=== PATIENT | male | born 1940 | race Caucasian/White ===

== ENCOUNTER 2025-02-24 08:21 | Inpatient (IN) ==
[2025-02-24] MEDS: 0.9 % SODIUM CHLORIDE 1,000 ML IV ONE (09:15)
[2025-02-24 09:18] LABS: ALT/SGPT 17 U/L (<40); AST/SGOT 33 U/L (<40); Albumin 3.7 gm/dL (3.2-5.2); Albumin/Globulin Ratio 1.2 (1.0-2.3); Alkaline Phosphatase 75 U/L (39-117); Anion Gap 13.0 (8.0-16.0); Bilirubin,Total 0.5 mg/dL (0.1-1.0); Blood Urea Nitrogen 18 mg/dL (8-23); Calcium 9.1 mg/dL (8.6-10.4); Carbon Dioxide 22 mmol/L (22-30); Chloride 101 mmol/L (96-108); Globulin 3.1 gm/dL (2.2-3.7); Glucose 151 mg/dL (70-105); Potassium 4.2 mmol/L (3.3-5.1); Sodium 136 mmol/L (133-145); Thyroid Stimulating Hormone 1.60 uIU/mL (0.27-5.01)
[2025-02-24 09:27] LABS: Bilirubin,Urine NEGATIVE (Negative); Color,Urine YELLOW; Glucose,Urine (UA) NEGATIVE (Negative); Ketones,Urine NEGATIVE (Negative); Leukocyte Esterase,Urine NEGATIVE /uL (Negative); PH,Urine 5.5 (5.0-9.0); Protein,Urine NEGATIVE (Negative); Specific Gravity,Urine >= 1.030 (1.000-1.035); Urobilinogen,Urine 0.2 mg/dL
[2025-02-24 09:44] LABS: Basophils # (Auto) 0.04 K/mcL (0.00-0.30); Basophils % (Auto) 0.2 % (0.0-2.0); Eosinophils # (Auto) 0 K/mcL (0.00-0.70); Eosinophils % (Auto) 0 % (0.0-7.0); Hematocrit 42.5 % (40.1-51.0); Hemoglobin 14.1 g/dL (13.7-17.5); Lymphocytes # (Auto) 0.61 K/mcL (1.50-4.80); Lymphocytes % (Auto) 3.7 % (15.5-49.0); Mean Corpuscular HGB Conc 33.2 g/dL (31.0-36.0); Monocytes # (Auto) 1.04 K/mcL (0.10-0.90); Monocytes % (Auto) 6.2 % (1.0-12.0); Neutrophils % (Auto) 89.6 % (38.0-78.0); Platelet Count 249 K/mcL (140-440); RBC 4.60 M/mcL (4.63-6.08); WBC 16.7 K/mcL (4.5-11.0)
[2025-02-24] MEDS: 0.9 % SODIUM CHLORIDE 500 ML IV ONE (12:25)
[2025-02-24] MEDS: cefTRIAXone 2 GM in DEXTROSE 5% IN WATER 50 ML IV ONE (12:28)
[2025-02-24] MEDS: AZITHROMYCIN 500 MG in DEXTROSE 5% IN WATER 250 ML IV ONE (13:00)
[2025-02-24 14:43] LABS: C-Reactive Protein 7.72 mg/dL (0.03-0.80)
[2025-02-24] MEDS: LACTATED RINGERS 500 ML IV SCH (17:04)
[2025-02-24] MEDS ORDERED: POLYETHYLENE GLYCOL 3350 17 GM PACKET PO PRN (17:25)
[2025-02-24] MEDS ORDERED: IPRATROPIUM/ALBUTEROL 3 ML AMPUL.NEB NEB PRN (17:25)
[2025-02-24] MEDS ORDERED: ONDANSETRON 4 MG/2 ML VIAL IV PRN (17:25)
[2025-02-24] MEDS: LACTATED RINGERS 1,000 ML IV SCH (19:36)
[2025-02-24] MEDS: DOXYCYCLINE 100 MG in DEXTROSE 5% IN WATER 100 ML IV SCH (21:10)
[2025-02-24] MEDS: SIMVASTATIN 10 MG TABLET PO SCH (21:11)
[2025-02-24] MEDS: OXYBUTYNIN CHLORIDE 5 MG TABLET PO SCH (21:11)
[2025-02-24] MEDS: DONEPEZIL 10 MG TABLET PO SCH (21:11)
[2025-02-24] MEDS: SENNOSIDES 1 TABLET PO SCH (21:12)
[2025-02-24] MEDS: DOCUSATE SODIUM 100 MG CAPSULE PO SCH (21:12)
[2025-02-24] MEDS: 0.9 % SODIUM CHLORIDE 10 ML SYRINGE IV SCH (21:13)
[2025-02-25 06:51] LABS: ALT/SGPT 26 U/L (<40); AST/SGOT 71 U/L (<40); Albumin 3.0 gm/dL (3.2-5.2); Albumin/Globulin Ratio 1.3 (1.0-2.3); Alkaline Phosphatase 61 U/L (39-117); Anion Gap 10.0 (8.0-16.0); Bilirubin,Direct 0.3 mg/dL (<0.3); Bilirubin,Total 0.5 mg/dL (0.1-1.0); Blood Urea Nitrogen 16 mg/dL (8-23); Calcium 8.7 mg/dL (8.6-10.4); Carbon Dioxide 25 mmol/L (22-30); Chloride 100 mmol/L (96-108); Globulin 2.4 gm/dL (2.2-3.7); Glucose 134 mg/dL (70-105); Phosphorous 2.4 mg/dL (2.5-4.5); Potassium 3.5 mmol/L (3.3-5.1); Sodium 135 mmol/L (133-145); Triglycerides 72 mg/dL (<150); Uric Acid 5.4 mg/dL (2.5-8.0)
[2025-02-25 06:53] LABS: C-Reactive Protein 15.20 mg/dL (0.03-0.80)
[2025-02-25 07:11] LABS: Basophils # (Auto) 0.04 K/mcL (0.00-0.30); Basophils % (Auto) 0.3 % (0.0-2.0); Eosinophils # (Auto) 0.02 K/mcL (0.00-0.70); Eosinophils % (Auto) 0.2 % (0.0-7.0); Hematocrit 36.4 % (40.1-51.0); Hemoglobin 12.2 g/dL (13.7-17.5); Lymphocytes # (Auto) 0.73 K/mcL (1.50-4.80); Lymphocytes % (Auto) 6.2 % (15.5-49.0); Mean Corpuscular HGB Conc 33.5 g/dL (31.0-36.0); Monocytes # (Auto) 0.64 K/mcL (0.10-0.90); Monocytes % (Auto) 5.4 % (1.0-12.0); Neutrophils % (Auto) 87.6 % (38.0-78.0); Platelet Count 193 K/mcL (140-440); RBC 3.95 M/mcL (4.63-6.08); WBC 11.8 K/mcL (4.5-11.0)
[2025-02-25] MEDS: cefTRIAXone 2 GM in DEXTROSE 5% IN WATER 50 ML IV SCH (08:05)
[2025-02-25] MEDS: ENOXAPARIN 40 MG/0.4 ML SYRINGE SQ SCH (08:07)
[2025-02-25] MEDS: TAMSULOSIN 0.4 MG CAPSULE PO SCH (08:07)
[2025-02-25] MEDS ORDERED: cefTRIAXone 1 GM VIAL IV SCH (09:00)
[2025-02-25] MEDS: NEUTRA PHOS 1 PACKET PO ONE (13:50)
[2025-02-26] MEDS: LOPERAMIDE 2 MG CAPSULE PO PRN (00:26)
[2025-02-26 06:12] LABS: Basophils # (Auto) 0.03 K/mcL (0.00-0.30); Basophils % (Auto) 0.4 % (0.0-2.0); Eosinophils # (Auto) 0.11 K/mcL (0.00-0.70); Eosinophils % (Auto) 1.4 % (0.0-7.0); Hematocrit 35.7 % (40.1-51.0); Hemoglobin 11.7 g/dL (13.7-17.5); Lymphocytes # (Auto) 0.66 K/mcL (1.50-4.80); Lymphocytes % (Auto) 8.7 % (15.5-49.0); Mean Corpuscular HGB Conc 32.8 g/dL (31.0-36.0); Monocytes # (Auto) 0.69 K/mcL (0.10-0.90); Monocytes % (Auto) 9.1 % (1.0-12.0); Neutrophils % (Auto) 80.1 % (38.0-78.0); Platelet Count 175 K/mcL (140-440); RBC 3.80 M/mcL (4.63-6.08); WBC 7.6 K/mcL (4.5-11.0)
[2025-02-26 06:30] LABS: C-Reactive Protein 11.20 mg/dL (0.03-0.80)
[2025-02-26 06:31] LABS: ALT/SGPT 34 U/L (<40); AST/SGOT 88 U/L (<40); Albumin 2.9 gm/dL (3.2-5.2); Albumin/Globulin Ratio 1.2 (1.0-2.3); Alkaline Phosphatase 61 U/L (39-117); Anion Gap 11.0 (8.0-16.0); Bilirubin,Direct 0.3 mg/dL (<0.3); Bilirubin,Total 0.5 mg/dL (0.1-1.0); Blood Urea Nitrogen 11 mg/dL (8-23); Calcium 8.4 mg/dL (8.6-10.4); Carbon Dioxide 23 mmol/L (22-30); Chloride 100 mmol/L (96-108); Globulin 2.5 gm/dL (2.2-3.7); Glucose 126 mg/dL (70-105); Phosphorous 2.0 mg/dL (2.5-4.5); Potassium 3.6 mmol/L (3.3-5.1); Sodium 134 mmol/L (133-145); Triglycerides 85 mg/dL (<150); Uric Acid 5.1 mg/dL (2.5-8.0)
[2025-02-26] MEDS ORDERED: VANCOMYCIN PER PHARMACY IV SCH (10:30)
[2025-02-26] MEDS: VANCOMYCIN 1,500 MG in 0.9 % SODIUM CHLORIDE 500 ML IV SCH (11:56)
[2025-02-26] MEDS: POTASSIUM PHOSPHATE 40 MEQ in DEXTROSE 5% IN WATER 500 ML IV ONE (16:13)
[2025-02-26] MEDS ORDERED: METHOCARBAMOL 1,000 MG/10 ML VIAL IV PRN (20:04)
[2025-02-26] MEDS: PRAMIPEXOLE 1 MG TABLET PO PRN (20:43)
[2025-02-27 07:07] LABS: Basophils # (Auto) 0.03 K/mcL (0.00-0.30); Basophils % (Auto) 0.5 % (0.0-2.0); Eosinophils # (Auto) 0.22 K/mcL (0.00-0.70); Eosinophils % (Auto) 3.3 % (0.0-7.0); Hematocrit 39.3 % (40.1-51.0); Hemoglobin 13.2 g/dL (13.7-17.5); Lymphocytes # (Auto) 0.83 K/mcL (1.50-4.80); Lymphocytes % (Auto) 12.6 % (15.5-49.0); Mean Corpuscular HGB Conc 33.6 g/dL (31.0-36.0); Monocytes # (Auto) 0.68 K/mcL (0.10-0.90); Monocytes % (Auto) 10.4 % (1.0-12.0); Neutrophils % (Auto) 72.6 % (38.0-78.0); Platelet Count 231 K/mcL (140-440); RBC 4.35 M/mcL (4.63-6.08); WBC 6.6 K/mcL (4.5-11.0)
[2025-02-27 07:13] LABS: ALT/SGPT 45 U/L (<40); AST/SGOT 85 U/L (<40); Albumin 3.4 gm/dL (3.2-5.2); Albumin/Globulin Ratio 1.1 (1.0-2.3); Alkaline Phosphatase 71 U/L (39-117); Anion Gap 13.0 (8.0-16.0); Bilirubin,Direct 0.3 mg/dL (<0.3); Bilirubin,Total 0.5 mg/dL (0.1-1.0); Blood Urea Nitrogen 9 mg/dL (8-23); Calcium 8.5 mg/dL (8.6-10.4); Carbon Dioxide 23 mmol/L (22-30); Chloride 102 mmol/L (96-108); Globulin 3.0 gm/dL (2.2-3.7); Glucose 129 mg/dL (70-105); Phosphorous 2.6 mg/dL (2.5-4.5); Potassium 3.5 mmol/L (3.3-5.1); Sodium 138 mmol/L (133-145); Triglycerides 91 mg/dL (<150); Uric Acid 4.6 mg/dL (2.5-8.0)
[2025-02-27] MEDS: VITAMIN B COMPLEX 1 CAPSULE PO SCH (09:18)
[2025-02-27] MEDS: MELATONIN 3 MG TABLET PO PRN (20:31)
[2025-02-28 06:18] LABS: Basophils # (Auto) 0.04 K/mcL (0.00-0.30); Basophils % (Auto) 0.6 % (0.0-2.0); Eosinophils # (Auto) 0.33 K/mcL (0.00-0.70); Eosinophils % (Auto) 5.0 % (0.0-7.0); Hematocrit 33.7 % (40.1-51.0); Hemoglobin 11.3 g/dL (13.7-17.5); Lymphocytes # (Auto) 0.82 K/mcL (1.50-4.80); Lymphocytes % (Auto) 12.5 % (15.5-49.0); Mean Corpuscular HGB Conc 33.5 g/dL (31.0-36.0); Monocytes # (Auto) 0.71 K/mcL (0.10-0.90); Monocytes % (Auto) 10.9 % (1.0-12.0); Neutrophils % (Auto) 70.1 % (38.0-78.0); Platelet Count 226 K/mcL (140-440); RBC 3.71 M/mcL (4.63-6.08); WBC 6.5 K/mcL (4.5-11.0)
[2025-02-28 06:40] LABS: ALT/SGPT 38 U/L (<40); AST/SGOT 49 U/L (<40); Albumin 2.9 gm/dL (3.2-5.2); Albumin/Globulin Ratio 1.3 (1.0-2.3); Alkaline Phosphatase 55 U/L (39-117); Anion Gap 11.0 (8.0-16.0); Bilirubin,Direct 0.2 mg/dL (<0.3); Bilirubin,Total 0.4 mg/dL (0.1-1.0); Blood Urea Nitrogen 8 mg/dL (8-23); C-Reactive Protein 6.38 mg/dL (0.03-0.80); Calcium 8.0 mg/dL (8.6-10.4); Carbon Dioxide 24 mmol/L (22-30); Chloride 104 mmol/L (96-108); Globulin 2.3 gm/dL (2.2-3.7); Glucose 116 mg/dL (70-105); Phosphorous 2.7 mg/dL (2.5-4.5); Potassium 3.3 mmol/L (3.3-5.1); Sodium 139 mmol/L (133-145); Triglycerides 80 mg/dL (<150); Uric Acid 4.9 mg/dL (2.5-8.0)
[2025-02-28] MEDS: CEFDINIR 300 MG CAPSULE PO SCH (08:59)
[2025-02-28] MEDS: DOXYCYCLINE HYCLATE 100 MG TABLET.ORL PO SCH (08:59)
[2025-02-28] MEDS: POTASSIUM CHLORIDE 20 MEQ TABLET PO ONE (17:38)
[2025-03-05] MEDS: LACTOBACILLUS 1 CAPSULE PO SCH (21:49)
[2025-03-06 06:30] LABS: Basophils # (Auto) 0.05 K/mcL (0.00-0.30); Basophils % (Auto) 0.9 % (0.0-2.0); Eosinophils # (Auto) 0.24 K/mcL (0.00-0.70); Eosinophils % (Auto) 4.2 % (0.0-7.0); Hematocrit 36.2 % (40.1-51.0); Hemoglobin 11.7 g/dL (13.7-17.5); Lymphocytes # (Auto) 0.89 K/mcL (1.50-4.80); Lymphocytes % (Auto) 15.7 % (15.5-49.0); Mean Corpuscular HGB Conc 32.3 g/dL (31.0-36.0); Monocytes # (Auto) 0.59 K/mcL (0.10-0.90); Monocytes % (Auto) 10.4 % (1.0-12.0); Neutrophils % (Auto) 67.4 % (38.0-78.0); Platelet Count 310 K/mcL (140-440); RBC 3.91 M/mcL (4.63-6.08); WBC 5.7 K/mcL (4.5-11.0)
[2025-03-06 06:43] LABS: ALT/SGPT 34 U/L (<40); AST/SGOT 21 U/L (<40); Albumin 3.1 gm/dL (3.2-5.2); Albumin/Globulin Ratio 1.2 (1.0-2.3); Alkaline Phosphatase 57 U/L (39-117); Anion Gap 7.0 (8.0-16.0); Bilirubin,Total 0.4 mg/dL (0.1-1.0); Blood Urea Nitrogen 10 mg/dL (8-23); Calcium 9.0 mg/dL (8.6-10.4); Carbon Dioxide 27 mmol/L (22-30); Chloride 103 mmol/L (96-108); Globulin 2.5 gm/dL (2.2-3.7); Glucose 129 mg/dL (70-105); Potassium 4.2 mmol/L (3.3-5.1); Sodium 137 mmol/L (133-145)
[2025-03-06] MEDS: POTASSIUM CHLORIDE 20 MEQ TABLET PO SCH (08:45)
[2025-03-07] MEDS: metFORMIN 500 MG TAB.XL.24H PO SCH (17:20)
[2025-03-08] MEDS: ACETAMINOPHEN 325 MG TABLET PO PRN (08:42)
== END 2025-03-09 11:57 | DRG 193 ==
LOC: ED 08:21 → MEDSUR 17:08
PROVIDERS: ADMIT Student in an Organized Health Care Education/Training Program; ATTEND Student in an Organized Health Care Education/Training Program